=== PATIENT | female | born 1965 | race Hispanic/Latino ===

== ENCOUNTER 2020-07-24 09:01 | Emergency (ER) | payer OTHER ==
[~2020-07-24] VITALS: Ht 157.5 cm; Wt 65.8 kg
[2020-07-24] MEDS ORDERED: SODIUM CHLORIDE 0.9% 1000ML 1,000 ML IV STA (09:13)
[2020-07-24 09:30] LABS: BASOPHILS # (AUTO) 0.1 (0.0-0.1); BASOPHILS % 0.4 % (0.0-1.0); EOSINOPHILS % 0.1 % (0.0-6.0); HEMATOCRIT 47.3 % (34.2-44.1); HEMOGLOBIN 16.7 g/dL (12.0-16.0); LYMPHOCYTES # (AUTO) 1.5 (1.0-3.2); LYMPHOCYTES % 9.6 % (18.0-39.1); MEAN CORPUSCULAR HEMOGLOBIN 32.7 pg (28-32); MEAN CORPUSCULAR HGB CONC 35.3 g/dL (31-35); MEAN CORPUSCULAR VOLUME 92.7 fL (81-99); MONOCYTES # (AUTO) 0.6 (0.2-0.8); NEUTROPHILS # (AUTO) 13.6 (2.1-6.9); NEUTROPHILS % 85.4 % (38.7-80.0); PLATELET COUNT 321 x10e3/uL (140-360); RED CELL DISTRIBUTION WIDTH 13.9 % (11.7-14.4)
[2020-07-24] MEDS ORDERED: ONDANSETRON HCL INJ 2MG/ML 2ML 2 MG/ML VIAL IV NR (09:30)
[2020-07-24] MEDS ORDERED: PANTOPRAZOLE 40 MG 10ML VIAL IV NR (09:30)
[2020-07-24 09:32] LABS: BILIRUBIN,URINE SMALL (NEGATIVE); CLARITY,URINE CLEAR (CLEAR); COLOR,URINE YELLOW (YELLOW); KETONES,URINE >=160 (NEGATIVE); LEUKOCYTE ESTERASE ,URINE NEGATIVE (NEGATIVE); NITRITE,URINE NEGATIVE (NEGATIVE); PROTEIN,URINE DIPSTICK 1+ (NEGATIVE); URINE UROBILINOGEN 0.2 mg/dL (0.2 - 1)
[2020-07-24 09:36] LABS: AMPHETAMINES SCREEN,URINE POSITIVE (NEGATIVE); EPITHELIAL CELLS,URINE FEW /LPF; PHENCYCLIDINE SCREEN,URINE NEGATIVE (NEGATIVE); RBC,URINE 0-5 /HPF (0-5); WBC,URINE (MAN) 0-5 /HPF (0-5)
[2020-07-24 09:37] LABS: BENZODIAZEPINES SCREEN,URINE NEGATIVE (NEGATIVE)
[2020-07-24 09:42] LABS: INR 0.99; PROTHROMBIN TIME 13.6 seconds (11.9-14.5)
[2020-07-24 09:43] LABS: PARTIAL THROMBOPLASTIN TIME 27.3 seconds (23.8-35.5)
[2020-07-24 09:48] LABS: ALANINE AMINOTRANSFERASE 21 IU/L (0-55); ALBUMIN 5.2 g/dL (3.5-5.0); ALBUMIN/GLOBULIN RATIO 1.4 (0.8-2.0); ALKALINE PHOSPHATASE 155 IU/L (40-150); AMYLASE 53 U/L (25-125); ANION GAP 23.9 mmol/L (8-16); BLOOD UREA NITROGEN 19 mg/dL (7-26); BUN/CREATININE RATIO 18 (6-25); CALCIUM 10.2 mg/dL (8.4-10.2); CARBON DIOXIDE 21 mmol/L (22-29); CHLORIDE 98 mmol/L (98-107); CREATININE, SERUM 1.03 mg/dL (0.57-1.11); EST GLOMERULAR FILTRATION RATE 55 ML/MIN (60-); GLUCOSE 170 mg/dL (74-118); LIPASE 13 U/L (8-78); MAGNESIUM 1.8 MG/DL (1.3-2.1); SODIUM 140 mmol/L (136-145)
[2020-07-24 10:00] LABS: POTASSIUM 2.9 mmol/L (3.5-5.1)
[2020-07-24 10:14] LABS: CREATINE KINASE 96 IU/L (29-168)
[2020-07-24] MEDS ORDERED: KCL 20MEQ/.9 SOD CHL 1,000 ML IV ONE (10:30)
[2020-07-24] MEDS ORDERED: POTASSIUM CHLORIDE 20 MEQ TAB CR PO NR (10:30)
[2020-07-24] MEDS ORDERED: IOPAMIDOL 370 MG/ML 200 ML INFUS..BTL INJ ONE (10:36)
[2020-07-24] MEDS ORDERED: SODIUM CHLORIDE 0.9% 50ML 50 ML ONE (10:36)
--- NOTE | 2020-07-24 11:00 | Diagnostic Imaging Report ---
EXAMINATION: CHEST SINGLE (PORTABLE) INDICATION: ^n/v/abd pain ^20200724 ^[id number] COMPARISON: None FINDINGS: TUBES and LINES: None. LUNGS: Normal lung volumes. Lungs are clear. No consolidations. PLEURA: No pleural effusion or pneumothorax. HEART AND MEDIASTINUM: The cardiomediastinal silhouette is unremarkable. BONES AND SOFT TISSUES: No acute osseous lesion. Soft tissues are unremarkable. UPPER ABDOMEN: No free air under the diaphragm. IMPRESSION: No acute thoracic radiographic abnormality. Signed by: Bry Lechuga MD on 07/24/2020 10:57 AM
--- NOTE | 2020-07-24 11:39 | Diagnostic Imaging Report ---
EXAM: CT Abdomen and Pelvis WITH contrast INDICATION: ^n/v/abd pain ^20200724 ^1043 COMPARISON: None. TECHNIQUE: Abdomen and pelvis were scanned utilizing a multidetector helical scanner from the lung base to the pubic symphysis after administration of IV contrast. Coronal and sagittal reformations were obtained. Routine protocol was performed. Scan was performed when during portal venous phase. IV CONTRAST: 100 mL of Isovue 370 ORAL CONTRAST: None COMPLICATIONS: None RADIATION DOSE: Total DLP: 531 mGy*cm Estimated effective dose: (DLP x 0.015 x size factor) mSv CTDIvol has been reviewed. It is below the limits set by the Radiation Protocol Committee (RPC). Dose modulation, iterative reconstruction, and/or weight based adjustment of the mA/kV was utilized to reduce the radiation dose to as low as reasonably achievable. FINDINGS: LINES and TUBES: None. LOWER THORAX: There is bibasilar atelectasis. HEPATOBILIARY: The liver is diffuse hypodense compared to the spleen, consistent with diffuse hepatic diffuse hepatic steatosis. No focal hepatic lesions. No biliary ductal dilation. GALLBLADDER: There are cholecystectomy clips. SPLEEN: No splenomegaly. PANCREAS: No focal masses or ductal dilatation. ADRENALS: There is a 1.8 x 1.7 left adrenal nodule which measures 50 HU. The right adrenal gland is normal. KIDNEYS/URETERS: Kidneys enhance symmetrically. No hydronephrosis. No cystic or solid mass lesions. No stones. GI TRACT: No abnormal distention, wall thickening, or evidence of bowel obstruction. There are diverticula within the colon without evidence of diverticulitis. Appendix is not clearly identified. There is however no fat stranding or adenopathy in the right lower quadrant to suggest appendicitis. PELVIC ORGANS/BLADDER: There is a left ovarian cyst which measures approximately 1.8 x 1.8 cm. Pelvic organs are otherwise within normal limits. LYMPH NODES: No lymphadenopathy. VESSELS: There is severe calcified and noncalcified atherosclerotic disease in the aorta and major arterial branches. PERITONEUM / RETROPERITONEUM: No free air or fluid. BONES: There are degenerative changes in the spine. SOFT TISSUES: Unremarkable. IMPRESSION: 1. No acute abdominopelvic abnormality identified. 2. Indeterminate 1.8 cm left adrenal nodule which measures 50 HU. Recommend further evaluation with nonemergent CT or MRI of the abdomen (adrenal mass protocol). 3. Hepatic steatosis. 4. Left ovarian cyst measuring up to1.8 cm. If clinically indicated, dedicated pelvic ultrasound can be considered. Signed by: Bry Lechuga MD on 07/24/2020 11:36 AM
--- NOTE | 2020-07-24 12:30 | Emergency Department Note ---
History of Present Illnes History of Present Illness Chief Complaint: Abdominal Complaints History of Present Illness This is a 54 year old female x 2 DAYS VOMITING "ALL NIGHT", COLD AND HOT SWEATS, UMBILICAL PAIN, DIARRHEA. Historian: Patient Additional Treatment [employer] MANAGER: NONE [employer] Required: No Onset (how long ago): day(s) (2) Location: ABDOMEN Quality: PAIN/CRAMPING Radiation: Reports non-radiation Severity: moderate Onset quality: gradual Timing of current episode: intermittent Progression: waxing and waning Chronicity: new Context: Denies recent illness Relieving factors: none Exacerbating factors: none Associated symptoms: Reports denies other symptoms Past Medical/Family History Physician Review I have reviewed the patient's past medical and family history. Any updates have been documented here. Past Medical History Recent Fever: No Clinical Suspicion of Infectio: No New/Unexplained Change in Ment: No Past Medical History: Hypertension, Diabetes, Anxiety, Depression, Hyperlipedemia Past Surgical History: Cholecysctectomy, Appendectomy Social History Smoking Cessation: Current every day smoker Counseling Performed: Yes Alcohol Use: None Any Illegal Drug Use: Yes (marijuana) TB Exposure/Symptoms: No Physically hurt or threatened: No Family History Family history of heart diseas: No Other Any Pre-Existing Lines (PICC,: No Review of Systems Review of Systems Constitutional: Reports as per HPI EENTM: Reports no symptoms Cardiovascular: Reports no symptoms Respiratory: Reports no symptoms Gastrointestinal: Reports as per HPI Genitourinary: Reports no symptoms Musculoskeletal: Reports no symptoms Integumentary: Reports no symptoms Neurological: Reports no symptoms Psychological: Reports no symptoms Endocrine: Reports no symptoms Hematological/Lymphatic: Reports no symptoms Physical Exam Related Data Allergies: Coded Allergies: No Known Allergies (Unverified , 07/24/20) Triage Vital Signs Vital Signs Date Time Temp Pulse Resp B/P (MAP) Pulse Ox O2 Delivery O2 Flow Rate FiO2 07/24/20 09:05 98.3 107 22 159/112 99 Room Air Vital signs reviewed: Yes Physical Exam CONSTITUTIONAL Constitutional: Present well-developed, Present well-nourished HENT HENT: Present normocephalic, Present atraumatic, Present mucosae dry, Present nose normal HENT L/R: Present left ext ear normal, Present right ext ear normal EYES Eyes: Reports PERRL, Reports conjunctivae normal NECK Neck: Present ROM normal PULMONARY Pulmonary: Present effort normal, Present breath sounds normal CARDIOVASCULAR Cardiovascular: Present regular rhythm, Present heart sounds normal, Present capillary refill normal, Present normal rate GASTROINTESTINAL Abdominal: Present soft, Present nontender, Present bowel sounds normal; Absent tender, Absent guarding, Absent rebound GENITOURINARY Genitourinary: Present exam deferred SKIN Skin: Present warm, Present dry MUSCULOSKELETAL Musculoskeletal: Present ROM normal NEUROLOGICAL Neurological: Present alert, Present oriented x 3, Present no gross motor or sensory deficits PSYCHOLOGICAL Psychological: Present mood/affect normal, Present judgement normal Results Laboratory Result Diagram: 07/24/2014 07/24/20 0914 Laboratory Laboratory Tests Test 07/24/20 10:14 07/24/20 09:14 Coronavirus (PCR) Not detected (NOTDETECTED) White Blood Count 15.88 x10e3/uL (4.8-10.8) Red Blood Count 5.10 x10e6/uL (3.6-5.1) Hemoglobin 16.7 g/dL (12.0-16.0) Hematocrit 47.3 % (34.2-44.1) Mean Corpuscular Volume 92.7 fL (81-99) Mean Corpuscular Hemoglobin 32.7 pg (28-32) Mean Corpuscular Hemoglobin Concent 35.3 g/dL (31-35) Red Cell Distribution Width 13.9 % (11.7-14.4) Platelet Count 321 x10e3/uL (140-360) Neutrophils (%) (Auto) 85.4 % (38.7-80.0) Lymphocytes (%) (Auto) 9.6 % (18.0-39.1) Monocytes (%) (Auto) 4.0 % (4.4-11.3) Eosinophils (%) (Auto) 0.1 % (0.0-6.0) Basophils (%) (Auto) 0.4 % (0.0-1.0) Neutrophils # (Auto) 13.6 (2.1-6.9) Lymphocytes # (Auto) 1.5 (1.0-3.2) Monocytes # (Auto) 0.6 (0.2-0.8) Eosinophils # (Auto) 0.0 (0.0-0.4) Basophils # (Auto) 0.1 (0.0-0.1) Absolute Immature Granulocyte (auto 0.08 x10e3/uL (0-0.1) Prothrombin Time 13.6 seconds (11.9-14.5) Prothromb Time International Ratio 0.99 Activated Partial Thromboplast Time 27.3 seconds (23.8-35.5) Urine Color Yellow (YELLOW) Urine Clarity Clear (CLEAR) Urine pH 5.5 (5 - 7) Urine Specific [place] >=1.030 (1.010-1.025) Urine Protein 1+ (NEGATIVE) Urine Glucose (UA) 2+ (NEGATIVE) Urine Ketones >=160 (NEGATIVE) Urine Blood Trace (NEGATIVE) Urine Nitrite Negative (NEGATIVE) Urine Bilirubin Small (NEGATIVE) Urine Urobilinogen 0.2 mg/dL (0.2 - 1) Urine Leukocyte Esterase Negative (NEGATIVE) Urine RBC 0-5 /HPF (0-5) Urine WBC 0-5 /HPF (0-5) Urine Epithelial Cells Few /LPF (NONE) Urine Bacteria None /HPF (NONE) Sodium Level 140 mmol/L (136-145) Potassium Level 2.9 mmol/L (3.5-5.1) Chloride Level 98 mmol/L (98-107) Carbon Dioxide Level 21 mmol/L (22-29) Anion Gap 23.9 mmol/L (8-16) Blood Urea Nitrogen 19 mg/dL (7-26) Creatinine 1.03 mg/dL (0.57-1.11) Estimat Glomerular Filtration Rate 55 ML/MIN (60-) BUN/Creatinine Ratio 18 (6-25) Glucose Level 170 mg/dL (74-118) Calcium Level 10.2 mg/dL (8.4-10.2) Magnesium Level 1.8 MG/DL (1.3-2.1) Total Bilirubin 0.7 mg/dL (0.2-1.2) Aspartate Amino Transf (AST/SGOT) 20 IU/L (5-34) Alanine Aminotransferase (ALT/SGPT) 21 IU/L (0-55) Alkaline Phosphatase 155 IU/L (40-150) Creatine Kinase 96 IU/L (29-168) Creatine Kinase MB 1.90 ng/mL (0-5.0) Troponin I < 0.001 ng/mL (0-0.300) Total Protein 8.8 g/dL (6.5-8.1) Albumin 5.2 g/dL (3.5-5.0) Globulin 3.6 g/dL (2.3-3.5) Albumin/Globulin Ratio 1.4 (0.8-2.0) Amylase Level 53 U/L (25-125) Lipase 13 U/L (8-78) Urine Opiates Screen Negative (NEGATIVE) Urine Methadone Screen Negative (NEGATIVE) Urine Barbiturates Screen Negative (NEGATIVE) Urine Phencyclidine Screen Negative (NEGATIVE) Urine Amphetamines Screen Positive (NEGATIVE) Urine Methamphetamines Screen Positive (NEGATIVE) Urine Benzodiazepines Screen Negative (NEGATIVE) Urine Cocaine Screen Negative (NEGATIVE) Urine Cannabinoids Screen Negative (NEGATIVE) Lab results reviewed: Yes Imaging Imaging results reviewed: Yes Impressions EXAM: CT Abdomen and Pelvis WITH contrast INDICATION: ^n/v/abd pain ^20200724 ^104 COMPARISON: None. TECHNIQUE: Abdomen and pelvis were scanned utilizing a multidetector helical scanner from the lung base to the pubic symphysis after administration of IV contrast. Coronal and sagittal reformations were obtained. Routine protocol was performed. Scan was performed when during portal venous phase. IV CONTRAST: 100 mL of Isovue 370 ORAL CONTRAST: None COMPLICATIONS: None RADIATION DOSE: Total DLP: 531 mGy*cm Estimated effective dose: (DLP x 0.015 x size factor) mSv CTDIvol has been reviewed. It is below the limits set by the Radiation Protocol Committee (RPC). Dose modulation, iterative reconstruction, and/or weight based adjustment of the mA/kV was utilized to reduce the radiation dose to as low as reasonably achievable. FINDINGS: LINES and TUBES: None. LOWER THORAX: There is bibasilar atelectasis. HEPATOBILIARY: The liver is diffuse hypodense compared to the spleen, consistent with diffuse hepatic diffuse hepatic steatosis. No focal hepatic lesions. No biliary ductal dilation. GALLBLADDER: There are cholecystectomy clips. SPLEEN: No splenomegaly. PANCREAS: No focal masses or ductal dilatation. ADRENALS: There is a 1.8 x 1.7 left adrenal nodule which measures 50 HU. The right adrenal gland is normal. KIDNEYS/URETERS: Kidneys enhance symmetrically. No hydronephrosis. No cystic or solid mass lesions. No stones. GI TRACT: No abnormal distention, wall thickening, or evidence of bowel obstruction. There are diverticula within the colon without evidence of diverticulitis. Appendix is not clearly identified. There is however no fat stranding or adenopathy in the right lower quadrant to suggest appendicitis. PELVIC ORGANS/BLADDER: There is a left ovarian cyst which measures approximately 1.8 x 1.8 cm. Pelvic organs are otherwise within normal limits. LYMPH NODES: No lymphadenopathy. VESSELS: There is severe calcified and noncalcified atherosclerotic disease in the aorta and major arterial branches. PERITONEUM / RETROPERITONEUM: No free air or fluid. BONES: There are degenerative changes in the spine. SOFT TISSUES: Unremarkable. IMPRESSION: 1. No acute abdominopelvic abnormality identified. 2. Indeterminate 1.8 cm left adrenal nodule which measures 50 HU. Recommend further evaluation with nonemergent CT or MRI of the abdomen (adrenal mass protocol). 3. Hepatic steatosis. 4. Left ovarian cyst measuring up to1.8 cm. If clinically indicated, dedicated pelvic ultrasound can be considered. Signed by: Bry Lechuga MD on 07/24/2020 11:36 AM Procedures 12 Lead ECG Interpretation ECG Interpretation : ECG: ECG 1 [employer]: Interpreted by ED physician Date: Jul 24, 2020 Time: 09:32 Rhythm: sinus rhythm Ectopy: infrequent PVC's Rate: normal BPM: 84 QRS axis: normal ST segments normal: Yes T wave inversion: II, III, aVR, aVF, V5, V6 Other findings: prolonged QTc interval Clinical Impression: abnormal ECG Assessment & Plan Medical Decision Making MDM PT C/O N/V/D X 2 DAYS WITH CRAMPY ABD PAIN, NON-TENDER ON EXAM - CHECK CBC, CHEM, ECG, CARDIACS, UA, UDS, CT A/P - R/O STEMI/NSTEMI, ELECTROLYTE ABNL, DEHYDRATION, RENAL INSUFF, COLITIS, UTI Reassessment Reassessment DC HOME, ZOFRAN/BENTYL, DC DRUG USE, F/U PCP TOMORROW, RTED PRN Assessment & Plan Final Impression: (1) Vomiting (2) Hypokalemia (3) Methamphetamine abuse Depart Disposition: HOME, SELF-CARE Last Vital Signs Date Time Temp Pulse Resp B/P (MAP) Pulse Ox O2 Delivery O2 Flow Rate FiO2 07/24/20 09:05 98.3 107 22 159/112 99 Room Air Medications in the ED Pantoprazole Sodium 40 mg ONCE IV Last administered on 07/24/20at 10:17; Admin Dose 40 MG; Start 07/24/20 at 09:30; Stop 07/24/20 at 10:59; Status DC Ondansetron HCl 4 mg ONCE IV Last administered on 07/24/20at 10:17; Admin Dose 4 MG; Start 07/24/20 at 09:30; Stop 07/24/20 at 10:59; Status DC Sodium Chloride 1,000 ml @ 0 mls/hr Q0M STAT IV Last administered on 07/24/20at 10:17; Admin Dose 250 MLS/HR; Start 07/24/20 at 09:13; Stop 07/24/20 at 09:21; Status DC Potassium Chloride 40 meq NOW PO Last administered on 07/24/20at 11:19; Admin Dose 40 MEQ; Start 07/24/20 at 10:30; Stop 07/24/20 at 11:59; Status DC Potassium Chloride/Sodium Chloride 1,000 ml @ 500 mls/hr Q2H ONCE IV Last administered on 07/24/20at 11:19; Admin Dose 500 MLS/HR; Start 07/24/20 at 10:30; Stop 07/24/20 at 12:29 Sodium Chloride 50 ml @ ud STK-MED ONCE .ROUTE ; Start 07/24/20 at 10:36; Stop 07/24/20 at 10:29; Status DC Iopamidol 74,000 mg STK-MED ONCE INJ ; Start 07/24/20 at 10:36; Stop 07/24/20 at 10:30; Status DC MILAD JONES MD Jul 24, 2020 12:30
[2020-07-24 13:19] VITALS: BP 142/86
== END 2020-07-24 13:15 | disposition home or self-care (01) ==
LOC: ER 09:15
DX: R11.2 Nausea with vomiting, unspecified (principal); R10.33 Periumbilical pain; E87.6 Hypokalemia; F15.10 Other stimulant abuse, uncomplicated; Z20.828 Contact with and (suspected) exposure to other viral communicable diseases; I10 Essential (primary) hypertension; E11.65 Type 2 diabetes mellitus with hyperglycemia; E78.5 Hyperlipidemia, unspecified; F41.9 Anxiety disorder, unspecified; R94.31 Abnormal electrocardiogram [ECG] [EKG]; F17.210 Nicotine dependence, cigarettes, uncomplicated
CPT/HCPCS: 36415; 71045; 74177; 80053; 80307; 81001; 82150; 82550; 82553; 83690; 83735; 84484; 85025; 85610; 85730; 87086; 93005; 99284; C9113; J2405; J7030; Q9967; U0002